=== PATIENT | female | born 1995 | race African-American/Black ===

== ENCOUNTER 2018-03-31 19:16 | Emergency (ER) | payer MEDICAID ==
[~2018-03-31] VITALS: Ht 144.8 cm; Wt 50.5 kg
[2018-03-31 19:19] VITALS: Ht 144.8 cm; Wt 50.5 kg
[2018-03-31 20:28] LABS: APPEARANCE CLEAR (CLEAR); BILIRUBIN NEGATIVE (NEGATIVE); COLOR RED (YELLOW); GLUCOSE NEGATIVE (NEGATIVE); KETONE NEGATIVE (NEGATIVE); NITRITE NEGATIVE (NEGATIVE); PROTEIN NEGATIVE (NEGATIVE); SPECIFIC GRAVITY 1.015 (1.005-1.020); UROBILINOGEN NORMAL (NORMAL)
[2018-03-31 20:30] LABS: BACTERIA MODERATE /hpf (NONE SEEN); RED CELLS - URINE 0-5 /hpf (0-5); WHITE CELLS - URINE 0-5 /hpf (0-5)
[2018-03-31 20:45] LABS: BASOPHILS 0.6 % (0-2); EOSINOPHILS 1.1 % (0-7); HEMATOCRIT 34.7 % (36.0-48.0); HEMOGLOBIN 11.6 g/dL (12-16); IMMATURE GRANULOCYTES 0.1 % (0-5); LYMPHOCYTES 52.3 % (15-50); MCH 27.9 pg (26.0-34.0); MCHC 33.4 g/dL (31.0-37.0); MCV 83.4 fL (80.0-100.0); MEAN PLATELET VOLUME 9.5 fL (7.4-10.4); MONOCYTES 13.8 % (2-11); NEUTROPHILS 32.1 % (40-80); PLATELET COUNT 389 10x3/uL (130-400); RBC 4.16 10x6/uL (4.00-5.40); RDW 14.7 % (11.5-14.5); WBC 7.3 10x3/uL (4.8-10.8)
[2018-03-31 21:03] LABS: CALC OSMOLALITY 276 mosm/kg (275-300); CALCIUM 8.8 mg/dL (8.5-10.1); CARBON DIOXIDE 25.7 mmol/L (21.0-32.0); CHLORIDE - SERUM 105 mmol/L (98-107); CREATININE - SERUM 0.7 mg/dL (0.6-1.3); GLUCOSE 107 mg/dL (74-106); POTASSIUM - SERUM 3.7 mmol/L (3.5-5.1); SODIUM 140 mmol/L (136-145); UREA NITROGEN 7 mg/dL (7-18); eGFR NON AFRICAN AMERICAN > 90 mL/min (90-120)
[2018-03-31 21:37] LABS: ALBUMIN 3.6 g/dL (3.4-5.0); ALKALINE PHOSPHATASE 105 U/L (46-116); ALT (SGPT) 19 U/L (10-68); BILIRUBIN - TOTAL 0.16 mg/dL (0.2-1.3)
[2018-03-31 22:10] LABS: HCG URINE NEGATIVE (NEGATIVE)
[2018-03-31] MEDS ORDERED: HYDROCODON-ACE1 EAC7 PO (23:46)
[2018-03-31] MEDS ORDERED: VOLTAREN75 MG PO (23:46)
[2018-04-01 00:09] VITALS: BP 132/75
== END 2018-04-01 00:10 | disposition home or self-care (01) ==
LOC: D.ER 19:16
PROVIDERS: Family Medicine
DX: N83.8 Other noninflammatory disorders of ovary, fallopian tube and broad ligament (principal)

== ENCOUNTER 2018-04-12 08:25 | Emergency (ER) | payer MEDICAID ==
[~2018-04-12] VITALS: Ht 144.8 cm; Wt 50.9 kg
[~2018-04-12 08:25] MED LIST: HYDROCODON-ACE1 EAC7 PO; VOLTAREN75 MG PO
[2018-04-12 08:30] VITALS: Ht 144.8 cm; Wt 50.9 kg
[2018-04-12 09:13] LABS: BASOPHILS 0.2 % (0-2); EOSINOPHILS 0.8 % (0-7); HEMATOCRIT 32.7 % (36.0-48.0); HEMOGLOBIN 10.9 g/dL (12-16); IMMATURE GRANULOCYTES 0.2 % (0-5); LYMPHOCYTES 30.6 % (15-50); MCH 28.2 pg (26.0-34.0); MCHC 33.3 g/dL (31.0-37.0); MCV 84.5 fL (80.0-100.0); MEAN PLATELET VOLUME 9.6 fL (7.4-10.4); MONOCYTES 9.6 % (2-11); NEUTROPHILS 58.6 % (40-80); PLATELET COUNT 379 10x3/uL (130-400); RBC 3.87 10x6/uL (4.00-5.40); RDW 15.1 % (11.5-14.5); WBC 9.7 10x3/uL (4.8-10.8)
[2018-04-12 09:25] LABS: ALBUMIN 3.6 g/dL (3.4-5.0); ALKALINE PHOSPHATASE 92 U/L (46-116); ALT (SGPT) 24 U/L (10-68); BILIRUBIN - TOTAL 0.38 mg/dL (0.2-1.3); CALC OSMOLALITY 276 mosm/kg (275-300); CALCIUM 8.4 mg/dL (8.5-10.1); CARBON DIOXIDE 27.6 mmol/L (21.0-32.0); CHLORIDE - SERUM 103 mmol/L (98-107); CREATININE - SERUM 0.6 mg/dL (0.6-1.3); GLUCOSE 93 mg/dL (74-106); POTASSIUM - SERUM 3.5 mmol/L (3.5-5.1); PROTEIN - SERUM 7.9 g/dL (6.4-8.2); SODIUM 139 mmol/L (136-145); UREA NITROGEN 9 mg/dL (7-18); eGFR NON AFRICAN AMERICAN > 90 mL/min (90-120)
[2018-04-12 09:46] LABS: APPEARANCE SL CLDY (CLEAR); BACTERIA FEW /hpf (NONE SEEN); BILIRUBIN NEGATIVE (NEGATIVE); COLOR RED (YELLOW); EPITHELIAL CELLS 0-5 /hpf (0-5); GLUCOSE NEGATIVE (NEGATIVE); KETONE NEGATIVE (NEGATIVE); MUCUS <1+ /lpf (NONE SEEN); NITRITE NEGATIVE (NEGATIVE); PROTEIN 3+ mg/dL (NEGATIVE); RED CELLS - URINE >50 /hpf (0-5); SPECIFIC GRAVITY 1.015 (1.005-1.020); UROBILINOGEN NORMAL (NORMAL)
[2018-04-12] MEDS ORDERED: BACTRIM 400-801 TAB PO (11:47)
[2018-04-12 12:20] VITALS: BP 114/78
== END 2018-04-12 12:16 | disposition home or self-care (01) ==
LOC: D.ER 08:25
PROVIDERS: Family Medicine
DX: N39.0 Urinary tract infection, site not specified (principal); R30.0 Dysuria